=== PATIENT | female | born 1980 | race Caucasian/White ===

== ENCOUNTER 2021-06-05 08:46 | Emergency (ER) | payer MEDICAID ==
[~2021-06-05] VITALS: Ht 152.4 cm; Wt 64.9 kg
[2021-06-05 09:07] VITALS: BP_SYST 133
--- NOTE | 2021-06-05 09:08 | NUR ---
Patient triaged and placed in waiting room. VSS and patient appears in no acute distress at this time. Accompanied by self, awaiting available bed, and MD notified of need for MSE.
--- NOTE | 2021-06-05 10:00 | NUR ---
Patient to ER bed 7 to gown for evaluation. Side rails up.
--- NOTE | 2021-06-05 10:10 | NUR ---
Pt presents to ED c/o R sided low back pain and abd pain. Pt has slow gait with limp.
[2021-06-05] MEDS ORDERED: MAG HYDROX/AL HYDROX/SIMETH 30 ML, DICYCLOMINE HCL 20 MG, LIDOCAINE VISCOUS 2% 15ML (PO... PO ONE ×3 (12:45)
--- NOTE | 2021-06-05 13:04 | NUR ---
Pt received from previousd RN, transfer of care.
--- NOTE | 2021-06-05 13:07 | NUR ---
Pt refused medication
[2021-06-05 13:23] LABS: CALCIUM 8.6 mg/dL (8.4-11.0); CREATININE 0.67 mg/dL (0.55-1.30); POTASSIUM 4.1 mmol/L (3.5-5.1)
[2021-06-05 13:26] LABS: BASOPHILS % (AUTO) 0.6 % (0.0-2.0); EOSINOPHILS # (AUTO) 0.1 K/uL (0.0-0.4); EOSINOPHILS % (AUTO) 1.4 % (0.0-4.0); HEMATOCRIT 35.7 % (36-48); HEMOGLOBIN 12.4 g/dL (12.0-16.0); LYMPHOCYTES # (AUTO) 1.7 K/uL (1.0-5.5); LYMPHOCYTES % (AUTO) 33.1 % (20.5-51.5); MEAN CORPUSCULAR HEMOGLOBIN 29 pg (27-31); MEAN CORPUSCULAR HGB CONC 35 % (32-36); MEAN CORPUSCULAR VOLUME 83 fL (79.0-98.0); MONOCYTES # (AUTO) 0.4 K/uL (0.0-1.0); MONOCYTES % (AUTO) 7.4 % (1.7-9.3); NEUTROPHILS # (AUTO) 2.9 K/uL (1.8-7.7); NEUTROPHILS % (AUTO) 57.5 % (40.0-70.0); PLATELET COUNT (AUTO) 223 K/uL (130-430); RED CELL DISTRIBUTION WIDTH 12.8 % (9.0-15.0); WHITE BLOOD COUNT (AUTO) 5.1 K/uL (4.8-10.8)
[2021-06-05 13:28] LABS: ALBUMIN 3.5 g/dL (3.4-4.8); TOTAL BILIRUBIN 0.3 mg/dL (0.0-1.0)
[2021-06-05 13:50] LABS: BILIRUBIN,URINE NEGATIVE (NEGATIVE); BLOOD, URINE 3+ (NEGATIVE); CLARITY/URINE CLEAR (CLEAR); COLOR,URINE YELLOW (YELLOW); GLUCOSE,URINE NEGATIVE (NEGATIVE); KETONES,URINE NEGATIVE (NEGATIVE); LEUKOCYTE ESTERASE ,URINE NEGATIVE (NEGATIVE); NITRITE, URINE NEGATIVE (NEGATIVE); PROTEIN URINE NEGATIVE (NEGATIVE); UROBILINOGEN,URINE 0.2 (0.2-1.0)
[2021-06-05 14:24] LABS: BACTERIA,URINE RARE /HPF (None Seen); WBC,URINE 0-3 /HPF (0-3)
--- NOTE | 2021-06-05 14:40 | NUR ---
ER Dr. Adair at bedside explaining results to pt.
[2021-06-05] MEDS ORDERED: MAG HYDROX/AL HYDROX/SIMETH 30 ML, LIDOCAINE VISCOUS 2% 15ML (PO) 15 ML, DICYCLOMINE HC... PO ONE ×3 (14:45)
[2021-06-05] MEDS ORDERED: OMEP40CA13 PO (14:56)
--- NOTE | 2021-06-05 15:15 | NUR ---
Patient given written and verbal discharge instructions and verbalizes understanding. DR. CHANDRAKANT WYATT MD discussed with patient the results and treatment provided. Patient in stable condition. ID arm band removed. Rx PER MD. Patient educated on pain management and to follow up with PMD. Pain Scale 0/10.Opportunity for questions provided and answered. Medication side effect fact sheet provided.
[2021-06-05 15:20] VITALS: BP_SYST 133
== END 2021-06-05 15:20 | disposition home or self-care (01) ==
LOC: SED 08:46
DX: K29.00 Acute gastritis without bleeding (principal); R31.29 Other microscopic hematuria; K80.20 Calculus of gallbladder without cholecystitis without obstruction; N83.202 Unspecified ovarian cyst, left side; N83.201 Unspecified ovarian cyst, right side; M54.5 Low back pain; Z79.899 Other long term (current) drug therapy
CPT/HCPCS: 36415; 76700; 76830; 76857; 80053; 81000; 83690; 85025; 99285; J2001